=== PATIENT | male | born 2000 | race Caucasian/White ===

== ENCOUNTER 2021-06-01 15:50 | Emergency (ER) | payer SELFPAY ==
[2021-06-01 16:10] VITALS: BP 126/88; PULSE 96; TEMP 97.6; BMI 25.0
[2021-06-01] MEDS ORDERED: KETOROLAC TROMETHAMINE 30 MG/1 ML VIAL IM ONE (17:20)
[2021-06-01] MEDS ORDERED: KETOROLAC TROMETHAMINE 30 MG/1 ML VIAL ONE (17:21)
== END 2021-06-01 18:23 | disposition home or self-care (01) ==
LOC: JERFT 15:50 → JER 15:50 → JERFT 18:23
PROC: 3E023GC Introduction of Other Therapeutic Substance into Muscle, Percutaneous Approach (ICD-10-PCS; principal; 2021-06-01)
DX: G44.319 Acute post-traumatic headache, not intractable (principal)
CPT/HCPCS: 99284-25

== ENCOUNTER 2023-08-08 21:09 | Inpatient (IN) | payer SELFPAY ==
[2023-08-08] MEDS ORDERED: ACETAMINOPHEN INJECTION 100 ML IVPB ONE (22:36)
[2023-08-08] MEDS ORDERED: FAMOTIDINE 20 MG/50 ML IVPB 20 MG/50 ML MG IVPB ONE (22:37)
[2023-08-08] MEDS: SODIUM CHLORIDE 1,000 ML IV STA (22:39)
[2023-08-08] MEDS: ACETAMINOPHEN 1000 MG/100 ML BAG IVPB ONE (22:39)
[2023-08-08] MEDS: FAMOTIDINE 20 MG/50 ML IVPB 20 MG/50 ML MG IVPB ONE (22:40)
[2023-08-08 22:46] LABS: BASO % 0.2 % (0-2.0); HEMATOCRIT 53.5 % (35.4-49); HEMOGLOBIN 18.4 GM/dL (11.7-16.9); LYMPH % 10.2 % (8-40); MCH 30.2 pg (25.7-33.7); MCHC 34.4 g/dl (32.0-35.9); MEAN CELL VOLUME 87.8 fl (80-96); MONO % 8.6 % (3.8-10.2); PLATELET COUNT 355 10^3/uL (134-434); RDW 13.7 % (11.9-15.9); WHITE BLOOD COUNT 16.3 K/mm3 (4.0-10.0)
[2023-08-08 22:56] LABS: INR 1.1 (0.83-1.09); PROTHROMBIN TIME (PATIENT) 12.8 SEC (9.7-13.0)
[2023-08-08 23:05] LABS: POTASSIUM 4.7 mmol/L (3.5-5.1)
[2023-08-08 23:10] LABS: ALBUMIN 4.5 g/dl (3.4-5.0); BLOOD UREA NITROGEN 10.3 mg/dL (7-18)
[2023-08-08 23:15] LABS: BILIRUBIN,TOTAL 1.1 mg/dL (0.2-1); MAGNESIUM 2.2 mg/dL (1.8-2.4); TOT PROT 8.9 g/dl (6.4-8.2)
[2023-08-08] MEDS ORDERED: ONDANSETRON 4 MG/2 ML VIAL ONE (23:16)
[2023-08-08] MEDS: ONDANSETRON 4 MG/2 ML VIAL IVPUSH ONE (23:19)
[2023-08-09] MEDS ORDERED: CEFTRIAXONE 1 GM/50 ML BAG ONE (00:24)
[2023-08-09] MEDS: CEFTRIAXONE 1,000 MG in DEXTROSE 5%-WATER - 50 ML IVPB ONE (00:27)
[2023-08-09] MEDS ORDERED: ONDANSETRON 4 MG/2 ML VIAL IVPUSH PRN ×4 (01:26→10:10)
[2023-08-09] MEDS ORDERED: ACETAMINOPHEN 1000 MG/100 ML BAG IVPB PRN (01:30)
[2023-08-09] MEDS: LACTATED RINGERS SOLUTION 1,000 ML/1,000 ML INFUS.BAG IV SCH (01:33)
[2023-08-09] MEDS: morphine SULFATE 4 MG/ML VIAL IVPUSH PRN ×2 (04:22→23:04)
[2023-08-09] MEDS ORDERED: MIDAZOLAM HCL 2 MG/2 ML SINGLE DOSE VIAL ONE (08:23)
[2023-08-09] MEDS ORDERED: PROPOFOL 40 ML ONE (08:23)
[2023-08-09] MEDS ORDERED: SUCCINYLCHOLINE CHLORIDE 200 MG/10 ML SYRINGE ONE (08:23)
[2023-08-09] MEDS ORDERED: BUPIVACAINE HCL/PF 0.25% (2.5MG/ML) 10 ML VIAL ONE (08:23)
[2023-08-09] MEDS ORDERED: BUPIVACAINE HCL/PF 0.5% (5MG/ML) 10 ML VIAL ONE (08:24)
[2023-08-09 08:29] VITALS: BMI 32.3
[2023-08-09] MEDS ORDERED: ROCURONIUM BROMIDE 50 MG/5 ML SYRINGE ONE (08:57)
[2023-08-09] MEDS: BUPIVACAINE HCL/PF 0.5% (5 MG/ML) 30 ML VIAL IJ ONE ×2 (09:15)
[2023-08-09] MEDS ORDERED: DEXAMETHASONE SOD PHOSPHATE 4 MG/1 ML VIAL ONE (09:15)
[2023-08-09] MEDS ORDERED: ONDANSETRON 4 MG/2 ML VIAL ONE ×2 (09:15→09:33)
[2023-08-09] MEDS ORDERED: KETOROLAC TROMETHAMINE 30 MG/1 ML VIAL ONE (09:29)
[2023-08-09] MEDS ORDERED: NEOSTIGMINE METHYLSULFATE 0.5 MG/1 ML - 10 ML MDV ONE (09:32)
[2023-08-09] MEDS ORDERED: GLYCOPYRROLATE 0.2 MG/1 ML VIAL ONE (09:33)
[2023-08-09] MEDS: LACTATED RINGERS SOLUTION 1,000 ML IV SCH ×2 (10:10→12:45)
[2023-08-09] MEDS: THIAMINE HCL 200 MG/2 ML VIAL IVPB ONE (13:45)
[2023-08-09] MEDS ORDERED: LORazepam 1 MG TABLET PO PRN (15:31)
[2023-08-09 21:59] VITALS: RESP 18
[2023-08-10] MEDS: ACETAMINOPHEN 1000 MG/100 ML BAG IVPB PRN (01:20)
[2023-08-10 09:08] LABS: BASO % 0.3 % (0-2.0); EOS % 0.2 % (0-4.5); HEMATOCRIT 42.9 % (35.4-49); HEMOGLOBIN 14.8 GM/dL (11.7-16.9); LYMPH % 23.7 % (8-40); MCH 30.1 pg (25.7-33.7); MCHC 34.5 g/dl (32.0-35.9); MEAN CELL VOLUME 87.5 fl (80-96); MEAN PLT VOLUME 6.9 fl (7.5-11.1); MONO % 9.3 % (3.8-10.2); NEUT % 66.5 % (42.8-82.8); PLATELET COUNT 279 10^3/uL (134-434); RBC 4.91 M/mm3 (4.00-5.60); RDW 13.1 % (11.9-15.9); WHITE BLOOD COUNT 11.5 K/mm3 (4.0-10.0)
[2023-08-10 09:18] LABS: POTASSIUM 3.3 mmol/L (3.5-5.1)
[2023-08-10 09:28] LABS: BLOOD UREA NITROGEN 6.2 mg/dL (7-18); CALCIUM 8.6 mg/dL (8.5-10.1)
[2023-08-10 09:29] LABS: MAGNESIUM 1.8 mg/dL (1.8-2.4)
[2023-08-10 09:33] LABS: CREATININE 0.8 mg/dL (0.55-1.3)
[2023-08-10] MEDS: POTASSIUM CHLORIDE TABS 20 MEQ TABLET.ER (FP) PO ONE (10:56)
[2023-08-10 10:58] VITALS: BP 121/68; PULSE 76; TEMP 99
== END 2023-08-10 12:12 | disposition home or self-care (01) | DRG 225 ==
LOC: JER 21:09 → JERBED 08-09 00:22 → J8W 08-09 03:52
PROVIDERS: ADMIT Internal Medicine; ATTEND Nurse Practitioner Acute Care
PROC: 0DTJ4ZZ Resection of Appendix, Percutaneous Endoscopic Approach (ICD-10-PCS; principal; 2023-08-09 07:57)
DX: K35.80 Unspecified acute appendicitis (principal); F10.10 Alcohol abuse, uncomplicated
CPT/HCPCS: 36415; 74177-TC; 80048; 80053; 83605; 83690; 83735; 85025; 85610; 85730; 88304-TC; 93005; 93010; 94760; 99285-25; J0131